=== PATIENT | male | born 1985 | race Caucasian/White ===

== ENCOUNTER → 2016-08-12 | Outpatient (CLI) | payer OTHER ==
--- NOTE | 2016-08-12 16:10 | MR ---
EXAMINATION TYPE: MR brain wo con DATE OF EXAM: 08/12/2016 3:23 PM COMPARISON: Correlation CT 05/03/2015 HISTORY: 31-year-old male has history of seizures, localization related partial seizures. TECHNIQUE: Multiplanar, multisequence images of the brain and brainstem were acquired without IV con trast. Diffusion weighted imaging is performed. FINDINGS: No evidence for acute infarction, hemorrhage, mass, mass effect, midline shift, herniation, effacemen t of basal cisterns, or extra-axial fluid collection. The ventricles and sulci are age-appropriate. Major intracranial flow voids are intact. T2/FLAIR weighted sequences show a couple 3 mm foci of bright subcortical signal at the anterior righ t parietal lobe, axial image 21. These are suspected to represent vasculature rather than abnormal wh ite matter signal change. No other T2 white matter signal abnormality seen. There is symmetric volume of the hippocampi and fornices. No temporal horn dilatation. Midline structures demonstrate normal morphology. The craniocervical junction is normal. Moderate mucosal thickening within the maxillary, ethmoid, and right frontal sinuses. Globes are inta ct. IMPRESSION: 1. No intracranial abnormality seen. A couple tiny bright white matter foci in the anterior right par ietal lobe are suspected to represent vasculature/pulsation artifact rather than abnormal white matte r signal change. Short interval follow-up can be considered if indicated. 2. Moderate chronic pansinus disease.
== END | disposition home or self-care (01) ==
LOC: RADMRIMAIN 14:45
PROVIDERS: ATTEND Psychiatry & Neurology Neurology
DX: G40.009 Localization-related (focal) (partial) idiopathic epilepsy and epileptic syndromes with seizures of localized onset, not intractable, without status epilepticus (principal)
CPT/HCPCS: 70551

== ENCOUNTER → 2016-09-24 | Outpatient (CLI) | payer OTHER | END | disposition home or self-care (01) | LOC: LABWHC1 09:48 | PROVIDERS: ATTEND Psychiatry & Neurology Neurology | DX: G40.009 Localization-related (focal) (partial) idiopathic epilepsy and epileptic syndromes with seizures of localized onset, not intractable, without status epilepticus (principal) | CPT/HCPCS: 36415; 80185; 84450; 84460 ==

== ENCOUNTER 2018-02-25 13:01 | Emergency (ER) | payer OTHER ==
[2018-02-25 13:19] VITALS: TEMP 98.1
[2018-02-25] MEDS ORDERED: ALPRAZolam 1 MG TAB PO STA (14:14)
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
[2018-02-25 14:52] LABS: Amphetamine Screen,Urine Not Detected (NotDetected); Barbiturate Screen,Urine Detected (NotDetected); Benzodiazepines Screen,Urine Detected (NotDetected); Cocaine Screen,Urine Not Detected (NotDetected); Methadone Screen, Urine Not Detected (NotDetected); Opiate Screen,Urine Not Detected (NotDetected); Oxycodone Screen, Urine Not Detected (NotDetected); Phencyclidine Screen,Urine Not Detected (NotDetected); Tricyclic Antidepressant,Urine Not Detected (NotDetected); Urn Cannabinoid Scrn Detected (NotDetected)
[2018-02-25 15:52] LABS: ALT 49 U/L (21-72); AST 48 U/L (17-59); Acetaminophen <10.0 ug/mL; Albumin 4.1 g/dL (3.5-5.0); Alkaline Phosphatase 60 U/L (38-126); Anion Gap 10 mmol/L; Blood Urea Nitrogen 9 mg/dL (9-20); Calcium 9.1 mg/dL (8.4-10.2); Carbon Dioxide 23 mmol/L (22-30); Chloride 107 mmol/L (98-107); Glucose 76 mg/dL (74-99); Potassium 4.2 mmol/L (3.5-5.1); Salicylate <1.0 mg/dL; Sodium 140 mmol/L (137-145); Total Bilirubin 0.3 mg/dL (0.2-1.3); Total Protein 6.5 g/dL (6.3-8.2)
[2018-02-25 15:58] LABS: Basophils % (A) 0 %; Eosinophils # (A) 0.1 k/uL (0-0.7); Eosinophils % (A) 1 %; HCT 44.8 % (39.0-53.0); HGB 15.1 gm/dL (13.0-17.5); Lymphocytes # (A) 1.5 k/uL (1.0-4.8); Lymphocytes % (A) 17 %; MCH 30.6 pg (25.0-35.0); MCHC 33.7 g/dL (31.0-37.0); MCV 90.8 fL (80.0-100.0); Monocytes # (A) 0.5 k/uL (0-1.0); Monocytes % (A) 6 %; Neutrophils # (A) 6.5 k/uL (1.3-7.7); Neutrophils % (A) 74 %; Platelet Count 192 k/uL (150-450); RBC 4.94 m/uL (4.30-5.90); RDW 12.8 % (11.5-15.5); WBC 8.8 k/uL (3.8-10.6)
[2018-02-25 18:03] VITALS: BP 105/66; PULSE 69; RESP 16
== END 2018-02-25 19:37 | disposition home or self-care (01) ==
LOC: EC 13:01
DX: F41.9 Anxiety disorder, unspecified (principal); F43.9 Reaction to severe stress, unspecified; R45.851 Suicidal ideations; F32.9 Major depressive disorder, single episode, unspecified; I10 Essential (primary) hypertension; G40.909 Epilepsy, unspecified, not intractable, without status epilepticus; F17.200 Nicotine dependence, unspecified, uncomplicated; Z79.899 Other long term (current) drug therapy
CPT/HCPCS: 36415; 80053; 80306; 82075; 83520; 85025; 93005; 99285

== ENCOUNTER 2018-05-11 19:22 | Emergency (ER) | payer OTHER ==
--- NOTE | 2018-05-11 19:26 | ED ---
Psych HPI - General Source: RN notes reviewed, old records reviewed - History of Present Illness Complaint: suicidal ideation, feels depressed, other (Does not want to exist) -: days(s) Associated Psychiatric Symptoms: racing thoughts, delusions History of same: Yes Quality: constant Improves With: none Worsens With: none Context: recent alcohol abuse Associated Symptoms: denies other symptoms <Oli Valencia - Last Filed: 05/11/18 20:23> <Reginald Thurman - Last Filed: 05/12/18 02:00> - General Stated Complaint: Mental Health Time Seen by Provider: 05/11/18 19:25 - History of Present Illness Initial Comments: This is a 32-year-old male to the ER for evaluation. Presents today for evaluation regards to psychiatric illness. Positive alcohol intoxication secondary to poor strain, patient mildly combative and angry but is redirectable upon initial questioning (Oli Valencia) - Related Data Home Medications Medication Instructions Recorded Confirmed Lisinopril [Zestril] 10 mg PO DAILY 07/08/17 05/11/18 levETIRAcetam [Keppra] 500 mg PO Q12HR 02/25/18 05/11/18 Cholecalciferol [Vitamin D3] 1,000 unit PO DAILY 05/11/18 05/11/18 Allergies Allergy/AdvReac Type Severity Reaction Status Date / Time No Known Allergies Allergy Verified 05/11/18 19:45 Review of Systems ROS Other: All systems not noted in ROS Statement are negative. <Oli Valencia - Last Filed: 05/11/18 20:23> ROS Other: All systems not noted in ROS Statement are negative. <Reginald Thurman - Last Filed: 05/12/18 02:00> ROS Statement: Those systems with pertinent positive or pertinent negative responses have been documented in the HPI. Past Medical History Past Medical History: Hypertension Additional Past Medical History / Comment(s): Hx of Alcohol abuse, cocaine and vicodin abuse. depression, suicidal ideation History of Any Multi-Drug Resistant Organisms: None Reported Past Surgical History: No Surgical Hx Reported Past Psychological History: Anxiety, Bipolar, Depression Smoking Status: Current every day smoker Past Alcohol Use History: Occasional Past Drug Use History: Marijuana <Oli Valencia - Last Filed: 05/11/18 20:23> General Exam General appearance: alert, in no apparent distress Head exam: Present: atraumatic, normocephalic, normal inspection Eye exam: Present: normal appearance, PERRL, EOMI. Absent: scleral icterus, conjunctival injection, periorbital swelling ENT exam: Present: normal exam, mucous membranes moist Neck exam: Present: normal inspection. Absent: tenderness, meningismus, lymphadenopathy Respiratory exam: Present: normal lung sounds bilaterally. Absent: respiratory distress, wheezes, rales, rhonchi, stridor Cardiovascular Exam: Present: regular rate, normal rhythm, normal heart sounds. Absent: systolic murmur, diastolic murmur, rubs, gallop, clicks GI/Abdominal exam: Present: soft, normal bowel sounds. Absent: distended, tenderness, guarding, rebound, rigid Extremities exam: Present: normal inspection, full ROM, normal capillary refill. Absent: tenderness, pedal edema, joint swelling, calf tenderness Back exam: Present: normal inspection Neurological exam: Present: alert, oriented X3, CN II-XII intact Psychiatric exam: Present: normal affect, normal mood Skin exam: Present: warm, dry, intact, normal color. Absent: rash <Oli Valencia - Last Filed: 05/11/18 20:23> Course <Oli Valencia - Last Filed: 05/11/18 20:23> <Reginald Thurman - Last Filed: 05/12/18 02:00> Vital Signs 05/11/18 05/11/18 05/11/18 19:28 21:10 23:00 Temperature 97.8 F Pulse Rate 76 Respiratory 18 17 18 Rate Blood Pressure 124/91 O2 Sat by Pulse 98 99 Oximetry 05/12/18 00:55 Temperature Pulse Rate Respiratory 21 Rate Blood Pressure O2 Sat by Pulse Oximetry - Reevaluation(s) Reevaluation #1: 05/11/18 20:24 Medical record is reviewed and patient has been prior hospitalized psychiatric illness (Oli Valencia) Disposition <Oli Valencia - Last Filed: 05/11/18 20:23> Is patient prescribed a controlled substance at d/c from ED?: No <Reginald Thurman - Last Filed: 05/12/18 02:00> Clinical Impression: Mood disorder Disposition: HOME SELF-CARE Condition: Good Instructions: Mood Disorders (ED) Referrals: Juan Jose Price DO [Primary Care Provider] - 1-2 days
[2018-05-11] MEDS ORDERED: LORazepam 1 MG TAB PO STA (20:05)
--- NOTE | 2018-05-11 20:23 | XR ---
EXAMINATION TYPE: XR foot complete RT DATE OF EXAM: 05/11/2018 COMPARISON: NONE HISTORY: Big toe pain TECHNIQUE: 3 views FINDINGS: Metatarsals appear intact. I see no fracture nor dislocation. The big toe appears intact. IMPRESSION: Negative right foot exam.
[2018-05-12] MEDS ORDERED: HYDROcodone/APAP 5-325MG 1 EACH TAB PO STA (00:49)
[2018-05-12] MEDS ORDERED: LORazepam 1 MG TAB PO STA (00:49)
[2018-05-12 02:34] VITALS: BP 116/92; PULSE 70; RESP 18; TEMP 97.9
== END 2018-05-12 02:04 | disposition home or self-care (01) ==
LOC: EC 19:22
DX: F39 Unspecified mood [affective] disorder (principal); R45.851 Suicidal ideations; F32.9 Major depressive disorder, single episode, unspecified; F41.9 Anxiety disorder, unspecified; I10 Essential (primary) hypertension; F17.200 Nicotine dependence, unspecified, uncomplicated; Z79.899 Other long term (current) drug therapy
CPT/HCPCS: 82075; 99285

== ENCOUNTER 2018-08-10 09:47 | Emergency (ER) | payer OTHER ==
[2018-08-10 09:54] VITALS: BP 102/66; PULSE 84; RESP 18; TEMP 98.4
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
== END 2018-08-10 11:28 | disposition home or self-care (01) ==
LOC: EC 09:47
DX: S62.314A Displaced fracture of base of fourth metacarpal bone, right hand, initial encounter for closed fracture (principal); I10 Essential (primary) hypertension; G40.909 Epilepsy, unspecified, not intractable, without status epilepticus; F17.200 Nicotine dependence, unspecified, uncomplicated; Z79.899 Other long term (current) drug therapy; Y04.2XXA Assault by strike against or bumped into by another person, initial encounter; Y93.89 Activity, other specified
CPT/HCPCS: 99283

== ENCOUNTER 2024-01-04 14:06 | Emergency (ER) | payer OTHER ==
[2024-01-04 14:23] VITALS: TEMP 98
[2024-01-04 14:45] LABS: Basophils % (A) 1 %; Eosinophils # (A) 0.1 k/uL (0-0.7); Eosinophils % (A) 1 %; HCT 44.9 % (39.0-53.0); Lymphocytes # (A) 2.3 k/uL (1.0-4.8); Lymphocytes % (A) 30 %; MCH 31.3 pg (25.0-35.0); MCHC 33.3 g/dL (31.0-37.0); MCV 93.9 fL (80.0-100.0); Mean Platelet Volume 7.5; Monocytes # (A) 0.3 k/uL (0-1.0); Monocytes % (A) 4 %; Neutrophils % (A) 64 %; Platelet Count 248 k/uL (150-450); RBC 4.79 m/uL (4.30-5.90); RDW 12.8 % (11.5-15.5); WBC 7.8 k/uL (3.8-10.6)
[2024-01-04 15:03] LABS: ALT 14 U/L (4-49); AST 27 U/L (17-59); African American GFR (CKD) >90 (>60 ml/min/1.73 sqM); Albumin 4.3 g/dL (3.5-5.0); Alkaline Phosphatase 63 U/L (38-126); Anion Gap 6 mmol/L; Blood Urea Nitrogen 7 mg/dL (9-20); Calcium 9.5 mg/dL (8.4-10.2); Carbon Dioxide 26 mmol/L (22-30); Chloride 106 mmol/L (98-107); Glucose 95 mg/dL (74-99); Magnesium 2.1 mg/dL (1.6-2.3); Non-African American GFR(CKD) >90 (>60 ml/min/1.73 sqM); Sodium 138 mmol/L (137-145); Total Bilirubin 0.5 mg/dL (0.2-1.3); Total Protein 6.5 g/dL (6.3-8.2)
--- NOTE | 2024-01-04 15:19 | ED ---
General Adult HPI - General Chief complaint: Seizure Stated complaint: Seizures,Dizziness Time Seen by Provider: 01/04/24 15:08 Source: patient, family Mode of arrival: ambulatory Limitations: no limitations - History of Present Illness Initial comments: Patient presents to the ED stating that he has a history of a seizure disorder, and he states that he has had 2 seizures while asleep over the past couple of nights. Patient states that the seizures were unwitnessed, but he can tell that he had seizures because he awoke with diffuse myalgias and a headache. Patient also states that he has had episodes of dizziness over the past month or so. Patient states that he spoke with his neurologist, and he was advised to come to the ED for further evaluation. He states that his next neurology appointment is not for 2 months. Patient states that he takes Keppra twice daily for seizure control, and he denies any missed doses or noncompliance. Patient also states that he takes Klonopin for anxiety, and he denies running out or any sudden changes in his Klonopin dosing. Patient admits to having a mild headache currently. Patient denies having any other symptoms at this time. Patient denies any known trauma or injury, fever or chills, focal numbness/weakness/neuro deficit, visual changes, speech difficulty, neck/back pain, tongue biting, incontinence, chest pain, dyspnea, cough or cold symptoms, palpitations, abdominal pain, nausea/vomiting/diarrhea, bloody or melanotic stool, dysuria or urinary symptoms, or any other symptoms or complaints. - Related Data Home Medications Medication Instructions Recorded Confirmed lisinopriL [Zestril] 10 mg PO DAILY 07/08/17 01/04/24 levETIRAcetam [Keppra] 1,500 mg PO BID 08/10/18 01/04/24 Azelastine HCl [Astelin Nasal 1 spray EA NOSTRIL BID 01/04/24 01/04/24 [place]] Cholecalciferol (Vitamin D3) 75 mcg PO DAILY 01/04/24 01/04/24 [Vitamin D3 (3000 Iu)] Folic Acid 0.8 mg PO DAILY 01/04/24 01/04/24 Ibuprofen [Motrin] 600 mg PO BID PRN 01/04/24 01/04/24 Magnesium Oxide [Magnesium] 500 mg PO DAILY 01/04/24 01/04/24 Multivitamins, Thera [Multivitamin 1 tab PO DAILY 01/04/24 01/04/24 (formulary)] [place]-3/Dha/Epa/Fish Oil [Fish Oil 1 cap PO DAILY 01/04/24 01/04/24 1,000 mg Softgel] Ondansetron [Zofran] 4 mg PO Q6H PRN 01/04/24 01/04/24 Ramelteon [Rozerem] 8 mg PO HS PRN 01/04/24 01/04/24 Vitamin B Complex [B-Complex] 1 tab PO DAILY 01/04/24 01/04/24 Zinc Gluconate [Zinc] 50 mg PO DAILY 01/04/24 01/04/24 clonazePAM [KlonoPIN] 1 mg PO AC-BID 01/04/24 01/04/24 Allergies Allergy/AdvReac Type Severity Reaction Status Date / Time No Known Allergies Allergy Verified 01/04/24 17:03 Review of Systems ROS Statement: Those systems with pertinent positive or pertinent negative responses have been documented in the HPI. ROS Other: All systems not noted in ROS Statement are negative. Past Medical History Past Medical History: Hypertension, Seizure Disorder Additional Past Medical History / Comment(s): Hx of Alcohol abuse, cocaine and vicodin abuse. depression, suicidal ideation History of Any Multi-Drug Resistant Organisms: None Reported Past Surgical History: No Surgical Hx Reported Past Psychological History: Anxiety, Bipolar, Depression Past Alcohol Use History: Occasional Past Drug Use History: None Reported General Exam Limitations: no limitations General appearance: alert, in no apparent distress Head exam: Present: atraumatic, normocephalic Eye exam: Present: normal appearance, PERRL, EOMI ENT exam: Present: mucous membranes moist, TM's normal bilaterally Neck exam: Present: normal inspection, full ROM, other (Trachea is in midline; no nuchal rigidity or meningeal signs are present on exam). Absent: tenderness, meningismus Respiratory exam: Present: normal lung sounds bilaterally. Absent: respiratory distress, wheezes, rales, rhonchi, stridor Cardiovascular Exam: Present: regular rate, normal rhythm, normal heart sounds, other (Normal radial pulses bilaterally) GI/Abdominal exam: Present: soft. Absent: distended, tenderness, guarding Extremities exam: Present: full ROM. Absent: tenderness, pedal edema Back exam: Present: normal inspection. Absent: tenderness Neurological exam: Present: alert, oriented X3, CN II-XII intact. Absent: motor sensory deficit Skin exam: Present: warm, dry, intact, normal color Course Vital Signs 01/04/24 01/04/24 14:19 18:26 Temperature 98 F Pulse Rate 60 62 Respiratory 20 18 Rate Blood Pressure 99/70 92/72 O2 Sat by Pulse 99 98 Oximetry - Reevaluation(s) Reevaluation #1: 01/04/24 18:41 Patient has not had any seizure activity while in the ED, and he continues to have a normal/nonfocal neurological exam. Patient remains alert and breathing comfortably. Patient denies development of any new symptoms while in the ED. Patient is aware of his test results, and he feels comfortable being discharged home at this time. He was instructed to call his neurologist's office in the morning to schedule a close follow-up appointment. He was also instructed to continue taking all of his medications as prescribed. He was counseled about seizures and dizziness, and he was clearly explained return and follow-up instructions. He feels comfortable with this plan. EKG Findings - EKG Comments: EKG Findings:: ED physician interpretation (interpreted by me): Sinus bradycardia, ventricular rate of 59 bpm, no ectopy, normal [place] and QRS intervals, normal QT interval, leftward axis, no ST or T wave abnormality Medical Decision Making - Medical Decision Making Was pt. sent in by a medical professional or institution ([facility] Mccann, DRIVER RECRUITER, urgent care, hospital, or [facility]...) When possible be specific @ -No Did you speak to anyone other than the patient for history (EMS, parent, family, police, friend...)? What history was obtained from this source @ -No Did you review nursing and triage notes (agree or disagree)? Why? @ -I reviewed and agree with nursing and triage notes Were old charts reviewed (outside hosp., previous admission, EMS record, old EKG, old radiological studies, urgent care reports/EKG's, [facility] records)? Report findings @ -No old charts were reviewed Differential Diagnosis (chest pain, altered mental status, abdominal pain women, abdominal pain men, vaginal bleeding, weakness, fever, dyspnea, syncope, headache, dizziness, GI bleed, back pain, seizure, CVA, palpatations, mental health, musculoskeletal)? @ -Differential Dizziness: Benign paroxysmal positional Vertigo, Menieres disease, dehydration, hypovolemia, arrhythmia, hypoglycemia, hyperglycemia, electrolyte insufficiency, seizure, anemia, this is not meant to be an all-inclusive list EKG interpreted by me (3pts min.). @ -As above X-rays interpreted by me (1pt min.). @ -None done CT interpreted by me (1pt min.). @ -Noncontrast head CT was reviewed myself and shows no acute intracranial abnormality. I agree with the radiologist's interpretation as above. U/S interpreted by me (1pt. min.). @ -None done What testing was considered but not performed or refused? (CT, X-rays, U/S, labs)? Why? @ -None What meds were considered but not given or refused? Why? @ -None Did you discuss the management of the patient with other professionals (professionals i.e. , PA, DRIVER RECRUITER, lab, RT, psych nurse, social and political studies professor, self pay collector, teacher, commercial escrow officer, manager of case management)? Give summary @ -No Was smoking cessation discussed for >3mins.? @ -No Was critical care preformed (if so, how long)? @ -No Were there social determinants of health that impacted care today? How? (Homelessness, low income, unemployed, alcoholism, drug addiction, transportation, low edu. Level, literacy, decrease access to med. care, [facility], rehab)? @ -No Was there de-escalation of care discussed even if they declined (Discuss DNR or withdrawal of care, Hospice)? DNR status @ -No What co-morbidities impacted this encounter? (DM, HTN, Smoking, COPD, CAD, Cancer, CVA, ARF, Chemo, Hep., AIDS, mental health diagnosis, sleep apnea, morbid obesity)? @ -Seizure disorder Was patient admitted / discharged? Hospital course, mention meds given and route, prescriptions, significant lab abnormalities, going to OR and other pertinent info. @ -Patient has not had any seizure activity while in the ED. patient has a n ormal/nonfocal neurological exam. Patient's labs are fairly unremarkable. Patient's vital signs are stable/normal. Patient's head imaging is negative. I do not suspect an emergent medical condition at this time. Will discharge patient home at this time with instructions to follow-up closely with his neurologist. Patient feels comfortable with this plan. Undiagnosed new problem with uncertain prognosis? @ -No Drug Therapy requiring intensive monitoring for toxicity (Heparin, Nitro, Insulin, Cardizem)? @ -No Were any procedures done? @ -No Diagnosis/symptom? @ -Dizziness, possible seizures Acute, or Chronic, or Acute on Chronic? @ -Default Uncomplicated (without systemic symptoms) or Complicated (systemic symptoms)? @ -Default Side effects of treatment? @ -No Exacerbation, Progression, or Severe Exacerbation? @ -No Poses a threat to life or bodily function? How? (Chest pain, [place], ME, pneumonia, PE, COPD, DKA, ARF, appy, cholecystitis, CVA, Diverticulitis, Homicidal, Suicidal, threat to staff... and all critical care pts) @ -No - Lab Data Result diagrams: 01/04/24 14:30 01/04/24 14:30 Lab Results 01/04/24 01/04/24 01/04/24 Range/Units 14:30 14:30 15:40 WBC 7.8 (3.8-10.6) k/uL RBC 4.79 (4.30-5.90) m/uL Hgb 15.0 (13.0-17.5) gm/dL Hct 44.9 (39.0-53.0) % MCV 93.9 (80.0-100.0) fL MCH 31.3 (25.0-35.0) pg MCHC 33.3 (31.0-37.0) g/dL RDW 12.8 (11.5-15.5) % Plt Count 248 (150-450) k/uL MPV 7.5 Neutrophils % 64 % Lymphocytes % 30 % Monocytes % 4 % Eosinophils % 1 % Basophils % 1 % Neutrophils # 5.0 (1.3-7.7) k/uL Lymphocytes # 2.3 (1.0-4.8) k/uL Monocytes # 0.3 (0-1.0) k/uL Eosinophils # 0.1 (0-0.7) k/uL Basophils # 0.0 (0-0.2) k/uL Sodium 138 (137-145) mmol/L Potassium 4.0 (3.5-5.1) mmol/L Chloride 106 (98-107) mmol/L Carbon Dioxide 26 (22-30) mmol/L Anion Gap 6 mmol/L BUN 7 L (9-20) mg/dL Creatinine 0.64 L (0.66-1.25) mg/dL Est GFR (CKD-EPI)AfAm >90 (>60 ml/min/1.73 sqM) Est GFR (CKD-EPI)NonAf >90 (>60 ml/min/1.73 sqM) Glucose 95 (74-99) mg/dL Calcium 9.5 (8.4-10.2) mg/dL Magnesium 2.1 (1.6-2.3) mg/dL Total Bilirubin 0.5 (0.2-1.3) mg/dL AST 27 (17-59) U/L ALT 14 (4-49) U/L Alkaline Phosphatase 63 (38-126) U/L Total Protein 6.5 (6.3-8.2) g/dL Albumin 4.3 (3.5-5.0) g/dL Urine Color Yellow Urine Appearance Cloudy (Clear) Urine pH 7.5 (5.0-8.0) Ur Specific [place] 1.019 (1.001-1.035) Urine Protein Negative (Negative) Urine Glucose (UA) Negative (Negative) Urine Ketones Negative (Negative) Urine Blood Negative (Negative) Urine Nitrite Negative (Negative) Urine Bilirubin Negative (Negative) Urine Urobilinogen <2.0 (<2.0) mg/dL Ur Leukocyte Esterase Negative (Negative) Urine RBC <1 (0-5) /hpf Urine WBC <1 (0-5) /hpf Ur Squamous Epith Cells <1 (0-4) /hpf Amorphous Sediment Occasional H (None) /hpf Urine Mucus Few H (None) /hpf Urine Opiates Screen Not Detected (NotDetected) Ur Oxycodone Screen Not Detected (NotDetected) Urine Methadone Screen Not Detected (NotDetected) Ur Barbiturates Screen Not Detected (NotDetected) U Tricyclic Antidepress Not Detected (NotDetected) Ur Phencyclidine Scrn Not Detected (NotDetected) Ur Amphetamines Screen Not Detected (NotDetected) U Methamphetamines Scrn Not Detected (NotDetected) U Benzodiazepines Scrn Not Detected (NotDetected) Urine Cocaine Screen Not Detected (NotDetected) U Marijuana (THC) Screen Detected H (NotDetected) - Radiology Data Noncontrast head CT: No acute intracranial abnormality seen. Disposition Clinical Impression: Dizziness, Marijuana abuse Narrative: Possible seizures Disposition: HOME SELF-CARE Condition: Stable Additional Instructions: Return to the ER immediately should he develop a seizure, numbness or weakness, new or worsening pain, feeling faint or fainting, a fever, shortness of breath, persistent vomiting, or new or worsening symptoms. Follow-up closely with your neurologist, as well as your primary care provider. Is patient prescribed a controlled substance at d/c from ED?: No Referrals: Salomon Tipton DO [Primary Care Provider] - 1-2 days Time of Disposition: 18:49
[2024-01-04 15:53] LABS: Amorphous Sediment,Urine Occasional /hpf; Appearance,Urine Cloudy (Clear); Bilirubin,Urine Negative (Negative); Blood,Urine Negative (Negative); Color,Urine Yellow; Glucose,Urine (UA) Negative (Negative); Ketones,Urine Negative (Negative); Leukocyte Esterase,Urine Negative (Negative); Mucus,Urine Few /hpf; Nitrite,Urine Negative (Negative); PH, Urine 7.5 (5.0-8.0); Protein,Urine Negative (Negative); RBC,Urine <1 /hpf (0-5); Specific Gravity,Urine 1.019 (1.001-1.035); Squamous Epithelial Cell,Urine <1 /hpf (0-4); Urobilinogen,Urine <2.0 mg/dL (<2.0); WBC,Urine <1 /hpf (0-5)
--- NOTE | 2024-01-04 15:58 | CT ---
EXAMINATION TYPE: CT brain wo con DATE OF EXAM: 01/04/2024 COMPARISON: 05/03/2015 HISTORY: 38-year-old male with possible seizure TECHNIQUE: Examination was done in axial plane without intravenous contrast. Coronal and sagittal r econstructions performed. CT DLP: 1095.4 mGycm Automated exposure control for dose reduction was used. FINDINGS: There is no evidence of acute intracranial hemorrhage, acute ischemic changes, mass, mass-effect, or extra-axial fluid collection. There is no effacement of cerebral sulci or basal subarachnoid cister ns. There is no hydrocephalus. There is no midline shift. Tamayo-white matter distinction is preserv ed. Paranasal sinuses and mastoid air cells well pneumatized. Orbits and globes are intact. Slight leftwa rd nasal septal deviation. IMPRESSION: No acute intracranial abnormality seen.
[2024-01-04 16:02] LABS: Amphetamine Screen,Urine Not Detected (NotDetected); Barbiturate Screen,Urine Not Detected (NotDetected); Benzodiazepines Screen,Urine Not Detected (NotDetected); Cocaine Screen,Urine Not Detected (NotDetected); Methadone Screen, Urine Not Detected (NotDetected); Opiate Screen,Urine Not Detected (NotDetected); Oxycodone Screen, Urine Not Detected (NotDetected); Phencyclidine Screen,Urine Not Detected (NotDetected); Tricyclic Antidepressant,Urine Not Detected (NotDetected); Urn Cannabinoid Scrn Detected (NotDetected)
[2024-01-04 18:29] VITALS: PULSE 62; RESP 18
[2024-01-04 19:28] VITALS: BP 114/74
== END 2024-01-04 19:28 | disposition home or self-care (01) ==
LOC: EC 14:06
DX: R42 Dizziness and giddiness (principal); F12.10 Cannabis abuse, uncomplicated; R00.1 Bradycardia, unspecified; G40.909 Epilepsy, unspecified, not intractable, without status epilepticus
CPT/HCPCS: 36415; 70450; 80053; 80306; 81001; 83735; 85025; 93005; 99284

== ENCOUNTER → 2024-06-27 | Outpatient (CLI) | payer OTHER ==
[2024-06-27 19:23] LABS: ALT 11 U/L (10-49); AST 21 U/L (14-35); Albumin 5.1 g/dL (3.8-4.9); Albumin/Globulin Ratio 2.12 Ratio (1.60-3.17); Alkaline Phosphatase 63 U/L (41-126); BUN/Creat Ratio 10.56 Ratio (12.00-20.00); Blood Urea Nitrogen 9.5 mg/dL (9.0-27.0); Calcium 9.3 mg/dL (8.7-10.3); Carbon Dioxide 27.5 mmol/L (21.6-31.8); Chloride 100 mmol/L (96-109); Globulin 2.4 g/dL (1.6-3.3); Glucose 80 mg/dL (70-110); Potassium 4.4 mmol/L (3.5-5.5); Sodium 139 mmol/L (135-145); T4, Free (Free Thyroxine) 0.38 ng/dL (0.80-1.80); Total Bilirubin 0.3 mg/dL (0.3-1.2); Total Protein 7.5 g/dL (6.2-8.2)
== END | disposition home or self-care (01) ==
LOC: LABWHC1 14:27
PROVIDERS: ATTEND Family Medicine Addiction Medicine
DX: R20.8 Other disturbances of skin sensation (principal); R53.82 Chronic fatigue, unspecified
CPT/HCPCS: 36415; 80053; 83036; 84439; 84443; 84481